=== PATIENT | male | born 1985 | race Caucasian/White ===

== ENCOUNTER 2017-04-22 18:27 | Emergency (ER) | payer BC ==
--- NOTE | 2017-04-22 18:33 | UC ---
Eye Complaint HPI - HPI Summary HPI Summary: 31 YEAR OLD PRESENTS WITH COMPLAINS OF RIGHT LOWER EYELID PIMPLE. - History of Current Complaint Chief Complaint: UCEye Stated Complaint: EYE COMPLAINT Time Seen by Provider: 04/22/17 18:33 Hx Obtained From: Patient Onset/Duration: Sudden Onset Timing: Constant Severity Initially: Moderate Severity Currently: Moderate Pain Scale Used: 0-10 Numeric - 6 Location of Injury: Eye Lid (lower) - RIGHT - Allergies/Home Medications Allergies/Adverse Reactions: Allergies Allergy/AdvReac Type Severity Reaction Status Date / Time Penicillins Allergy Severe Anaphylatic Verified 04/22/17 18:31 Shock Home Medications: Home Medications Ranitidine HCl (Nf) [Zantac] PRN 04/22/17 [History] PMH/Surg Hx/FS Hx/Imm Hx Previously Healthy: Yes - Surgical History Surgical History: None - Social History Alcohol Use: Occasionally Substance Use Type: None Smoking Status (MU): Never Smoked Tobacco Review of Systems Constitutional: Negative Skin: Negative Eyes: Other - RIGHT LOWER EYELID PIMPLE ENT: Negative Respiratory: Negative Cardiovascular: Negative Gastrointestinal: Negative Genitourinary: Negative Motor: Negative Neurovascular: Negative Musculoskeletal: Negative Neurological: Negative Psychological: Negative All Other Systems Reviewed And Are Negative: Yes Physical Exam Triage Information Reviewed: Yes Vital Signs: Initial Vital Signs Temp 36.4 C 04/22/17 18:29 Pulse 85 04/22/17 18:29 Resp 16 04/22/17 18:29 BP 119/78 04/22/17 18:29 Pulse Ox 99 04/22/17 18:29 Eyes: Positive: Other: - RIGHT LOWER EYE LID PIMPLE ENT Exam: Normal Dental Exam: Normal Neck exam: Normal Neck: Positive: 1 Respiratory Exam: Normal Cardiovascular Exam: Normal Abdominal Exam: Normal Musculoskeletal Exam: Normal Neurological Exam: Normal Psychological Exam: Normal Skin Exam: Normal Eye Complaint Course/Dx - Differential Dx/Diagnosis Provider Diagnoses: RIGHT LOWER EYELID STYE Discharge - Discharge Plan Condition: Stable Disposition: HOME Prescriptions: Erythromycin OPHTH.OINT* [Ilotycin OPHTH.OINT*] 1 applic RIGHT EYE QID #1 tube Referrals: ISABELLA Masters [[facility]BUS[employer], APPLICATION, OTHER] - Jesús Meza MD [Medical Doctor] -
[2017-04-22 18:45] VITALS: BP 119/78
== END 2017-04-22 18:40 | disposition home or self-care (01) ==
LOC: UCEAST 18:27
DX: H00.012 Hordeolum externum right lower eyelid (principal); Z88.0 Allergy status to penicillin
CPT/HCPCS: 99212; G0463

== ENCOUNTER 2017-06-29 16:40 | Emergency (ER) | payer BC ==
[2017-06-29 17:05] VITALS: BP 116/77
--- NOTE | 2017-06-29 17:33 | UC ---
Tamica Ocampo Nilda, scribed for Ellie Zhu MD on 06/29/17 at 1732 . Complaint Male HPI - HPI Summary HPI Summary: This patient is a 31 year old M presenting [place] [facility] [place] a chief complaint of constant diffuse testicular and scrotal pain for the past few days. The patient rates the pain 5/10 in severity and describes it as an ache. Symptoms aggravated and alleviated by nothing. Patient reports intermittent rectal pain with defecation and urinary frequency. He denies fever, abnormal BM, melena, burning during urination, lesions or erythema on penis or scrotum, discharge from penis, pain with ejaculation or erections, back pain, SOB, CP, epididymitis, and cysts on genitals. Pt has been with same partner and is not sure if he should be concerned for STIs. He states he has not had recent STIs and denies being immunocompromised in any capacity including DM, chemotherapy, and HIV. He notes he has not had recent assaults or trauma to affected area. Pt states has used enema. Pt states he is not currently on daily medications. Patients medication reviewed this visit. - History of Current Complaint Chief Complaint: UCGU Stated Complaint: TESTICULAR PAIN Hx Obtained From: Patient Onset/Duration: Sudden Onset, Lasting Days, Still Present Timing: Constant, Lasting Days, Lasting Weeks Severity Currently: Moderate Pain Intensity: 5 Pain Scale Used: 0-10 Numeric Location: Testicle Aggravating Factor(s): Other - BM Alleviating Factor(s): Nothing Associated Signs And Symptoms: Positive: Negative - Allergies/Home Medications Allergies/Adverse Reactions: Allergies Allergy/AdvReac Type Severity Reaction Status Date / Time Penicillins Allergy Severe Anaphylatic Verified 04/22/17 18:31 Shock PMH/Surg Hx/FS Hx/Imm Hx Previously Healthy: Yes - Surgical History Surgical History: Yes Surgery Procedure, Year, and Place: tonsillectomy - Family History Known Family History: Positive: Diabetes - Social History Occupation: Employed Full-time Lives: With Family Alcohol Use: Occasionally Substance Use Type: None Smoking Status (MU): Never Smoked Tobacco Review of Systems Constitutional: Other - negative fever Respiratory: Other - negative SOB Cardiovascular: Other - negative CP Gastrointestinal: Other - rectal pain;negative abnormal BM, melena Genitourinary: Frequency, Other - testicular pain; negative burning during urination, lesions or erythema on penis or scrotum, discharge from penis, pain with ejaculation or erections, epididymitis, and cysts on genitals. Musculoskeletal: Other: - negative back pain Is Patient Immunocompromised?: No All Other Systems Reviewed And Are Negative: Yes Physical Exam Triage Information Reviewed: Yes Appearance: Well-Appearing, No Pain Distress, Well-Nourished Vital Signs: Initial Vital Signs Temp 98.1 F 06/29/17 16:55 Pulse 74 06/29/17 16:55 Resp 16 06/29/17 16:55 BP 116/77 06/29/17 16:55 Pulse Ox 100 06/29/17 16:55 Vital Signs Reviewed: Yes Eyes: Positive: Conjunctiva Clear ENT: Positive: Normal ENT inspection, Hearing grossly normal, Pharynx normal Dental Exam: Normal Neck exam: Normal Neck: Positive: Supple, Nontender Respiratory Exam: Normal Respiratory: Positive: Chest non-tender, Lungs clear, Normal breath sounds, No respiratory distress, No accessory muscle use Cardiovascular Exam: Normal Cardiovascular: Positive: RRR, No Murmur, Pulses Normal Abdominal Exam: Normal Abdomen Description: Positive: Nontender, No Organomegaly, Soft, Other: - testes down b/l. non tender, no masses No pain over epidydmis b/l No edema, erythema, ecchymosis of scrotum no external lesions no inguinal hernia b/l Bowel Sounds: Positive: Present Musculoskeletal Exam: Normal Musculoskeletal: Positive: Strength Intact, ROM Intact Neurological Exam: Normal Neurological: Positive: Alert Psychological Exam: Normal Complaint Male Course/Dx - Course Course Of Treatment: Pt with report of ongoing, intermittent rectal, scrotal and testicular pain x several day. No dyuria, hematuria. No concerning findings on exam. Pt was advised to visit [facility] for US since US services at were not available at the time. Pt is stable and will be transferred to ED with Dx of rectal pain and scrotal pain. - Differential Dx/Diagnosis Provider Diagnoses: scrotal pain. rectal pain Discharge - Discharge Plan Condition: Stable Disposition: HOME Patient Education Materials: Rectal Pain (ED), Scrotal Pain (ED) Referrals: Leena Goldman MD [Primary Care Provider] - Additional Instructions: The doctor that evaluated you today recommends you go to the emergency department for further evaluation and treatment. The evaluation may include an ultrasound, urinalysis, possibly lab work The documentation as recorded by the Tamica savageChristi accurately reflects the service I personally performed and the decisions made by me, Ellie Zhu MD.
== END 2017-06-29 17:30 | disposition home or self-care (01) ==
LOC: UCEAST 16:40
DX: N50.82 Scrotal pain (principal); K62.89 Other specified diseases of anus and rectum; Z88.0 Allergy status to penicillin
CPT/HCPCS: 99212; G0463

== ENCOUNTER 2017-06-29 17:56 | Emergency (ER) | payer BC ==
--- NOTE | 2017-06-29 20:34 | RAD ---
INDICATION: Scrotal pain COMPARISON: None TECHNIQUE: Duplex interrogation of the scrotum was performed. FINDINGS: The testicles are normal in size and echogenicity. There is no evidence for testicular mass. The right testis measures 4.9 x 2.0 x 3.0 cm and the left 4.2 x 2.1 x 2.9 cm. There is symmetric flow on Doppler interrogation. Arterial and venous waveforms are identified bilaterally. The epididymides appear normal. The right epididymal head measures 1.0 x 1.1 cm and the left 0.8 x 0.9 cm. Trace bilateral hydroceles are noted. There are no varicoceles. IMPRESSION: Trace bilateral hydroceles in an otherwise normal ultrasound examination of the scrotum.
[2017-06-29] MEDS ORDERED: Dibucaine 1% 28.35 GM TUBE PR PRN (22:02)
[2017-06-29] MEDS ORDERED: Hydrocortisone SUPP* 25 MG SUPP (2.5%) PR ONE (22:03)
--- NOTE | 2017-06-29 22:09 | ED ---
GI/ HPI - HPI Summary HPI Summary: 31M presents with scrotal pain today. He states he was exercising and noticed some bruising and swelling to his scrotum. this has never happened before. no history of STD or trauma. He denies any dysuria, hematuira, flank pain, urgency , frequency. He denies any penile discharge or history of epididymitis. He denies any fever. He states the swelling has decreased throughout the day. He states the brusing has disappear since he arrived at which was transfered from. He also admits to intermittent rectal pain for past weeks. He states worst when he sits on area. He denies any rectal bleed or melena. He denies any constipation or excessive straining. He denies any fever or abdominal pain. He denies any previous abdominal surgeries or history of uc or crohns. He states the area is itchy. He has not tried anything. - History of Current Complaint Chief Complaint: EDRectalPain Time Seen by Provider: 06/29/17 21:19 Stated Complaint: TESTICULAR & RECTAL PAIN Pain Intensity: 5 - Allergy/Home Medications Allergies/Adverse Reactions: Allergies Allergy/AdvReac Type Severity Reaction Status Date / Time Penicillins Allergy Severe Anaphylatic Verified 04/22/17 18:31 Shock PMH/Surg Hx/FS Hx/Imm Hx Endocrine/Hematology History: Denies: Hx Diabetes, Hx Thyroid Disease Cardiovascular History: Denies: Hx Hypertension, Hx Pacemaker/ICD Respiratory History: Denies: Hx Asthma, Hx Chronic Obstructive Pulmonary Disease (COPD) GI History: Denies: Hx Ulcer Musculoskeletal History: Denies: Hx Scoliosis Sensory History: Denies: Hx Hearing Aid Neurological History: Reports: Hx Headaches Denies: Other Neuro Impairments/Disorders Psychiatric History: Denies: Hx Panic Disorder - Surgical History Surgery Procedure, Year, and Place: tonsillectomy - Immunization History Immunizations Up to Date: Yes Infectious Disease History: No Infectious Disease History: Denies: Hx Hepatitis, Hx Human Immunodeficiency Virus (HIV), History Other Infectious Disease, Traveled Outside the [place] in Last 30 Days - Family History Known Family History: Positive: Diabetes - Social History Alcohol Use: Occasionally Substance Use Type: Reports: None Smoking Status (MU): Never Smoked Tobacco Review of Systems Negative: Fever Negative: Chest Pain Negative: Shortness Of Breath Positive: Other - rectal pain Positive: other - scrotal pain and edema. Negative: dysuria, flank pain All Other Systems Reviewed And Are Negative: Yes Physical Exam Triage Information Reviewed: Yes Vital Signs On Initial Exam: Initial Vitals Temp Pulse Resp BP Pulse Ox 97.8 F 68 18 122/77 98 06/29/17 18:00 06/29/17 18:00 06/29/17 18:00 06/29/17 18:00 06/29/17 18:00 Vital Signs Reviewed: Yes Appearance: Positive: Well-Appearing Skin: Positive: Warm, Dry Head/Face: Positive: Normal Head/Face Inspection Eyes: Positive: Normal, Conjunctiva Clear Respiratory/Lung Sounds: Positive: Clear to Auscultation, Breath Sounds Present Cardiovascular: Positive: Normal, RRR Abdomen Description: Positive: Nontender, Soft, Other: - hemorrhoid present on posterior left Bowel Sounds: Positive: Present Male Genital Exam: Positive: normal genitalia, no hernia. Negative: epididymal tenderness, erythema, inguinal tenderness, scrotum tenderness (R), scrotum tenderness (L), testicular tenderness (R), testicular tenderness (L) Neurological: Positive: Normal Psychiatric: Positive: Normal - [place] Coma Scale Coma Scale Total: 15 Diagnostics - Vital Signs Vital Signs Temp Pulse Resp BP Pulse Ox 06/29/17 20:14 98.1 F 71 16 127/73 98 06/29/17 18:00 97.8 F 68 18 122/77 98 - Laboratory Lab Statement: Any lab studies that have been ordered have been reviewed, and results considered in the medical decision making process. - Ultrasound No standard instances Ultrasound Interpretation: Positive (See Comments) - IMPRESSION: Trace bilateral hydroceles in an otherwise normal ultrasound examination of the scrotum. Ultrasound Interpretation Completed By: Radiologist CLEOPATRA Course/Dx - Course Course Of Treatment: 31M presents with scrotal pain today. He states he was exercising and noticed some bruising and swelling to his scrotum. this has never happened before. no history of STD or trauma. He denies any dysuria, hematuira, flank pain, urgency, frequency. He denies any penile discharge or history of epididymitis. He denies any fever. He states the swelling has decreased throughout the day. He states the brusing has disappear since he arrived at which was transfered from. testicular exam normal. u/s only shows hydrocele. with the history what to have follow up with urology to make sure nothing else going on (possible torison that fixed itself). He also admits to intermittent rectal pain for past weeks. He states worst when he sits on area. He denies any rectal bleed or melena. He denies any constipation or excessive straining. He denies any fever or abdominal pain. He denies any previous abdominal surgeries or history of uc or crohns. He states the area is itchy. He has not tried anything. on exam has hemorrhoids present on posterior left. will treat with anusol and dibucaine for pain. told that will take some time but if not improving to follow up with surgery. patient understand and agrees with plan. - Diagnoses Differential Diagnoses - Male: Epididymitis, Hemorrhoids, Testicular Torsion, Other - anal fissure Provider Diagnoses: Scrotal pain, Hydrocele, Hemorrhoid Discharge - Discharge Plan Condition: Good Disposition: HOME Prescriptions: Dibucaine 1% OINT* [Nupercainal 1% OINT*] 1 applic [place] DAILY #1 oint Hydrocortisone SUPP* [Anusol HC Supp*] 25 mg [place] BID #20 supp Patient Education Materials: Hydrocele (ED) Referrals: James Rosales MD [Medical Doctor] - Ravinder Wren MD [Medical Doctor] - Leena Goldman MD [Primary Care Provider] - Additional Instructions: Follow up with urology about scrotal pain Take ibuprofen for pain every 6 hours for pain Inc fiber, consider taking OTC laxative for constipation Can do sitz baths [address] dibucaine sparingly on area up to 6 times a day for pain Use ansuol suppository twice a day until symptoms resolve Follow up with surgery Return to ED if any new or worsening symptoms
[2017-06-29 22:28] LABS: Urine Bilirubin Negative (Negative); Urine Glucose Negative (Negative); Urine Nitrite Negative (Negative)
[2017-06-29 22:33] VITALS: BP 128/68
== END 2017-06-29 22:36 | disposition home or self-care (01) ==
LOC: ED 17:56
DX: N50.82 Scrotal pain (principal); N43.3 Hydrocele, unspecified; K64.9 Unspecified hemorrhoids
CPT/HCPCS: 36415; 76870; 81003; 86703; 99282; A9270-GY

== ENCOUNTER 2018-01-05 17:38 | Emergency (ER) | payer BC ==
[2018-01-05 17:47] VITALS: BP 136/72
[2018-01-05] MEDS ORDERED: Azithromycin TAB* 250 MG PO ONE (19:12)
[2018-01-05] MEDS ORDERED: cefTRIAXone VIAL(*) 250 MG VIAL IM ONE (19:12)
--- NOTE | 2018-01-05 19:15 | UC ---
Krista Ocampo Emily, scribed for Avinash Islas MD on 01/05/18 at 1823 . Complaint Male HPI - HPI Summary HPI Summary: This patient is a 32 year old M presenting to urgent care with a chief complaint of topical irritation to rectal area that began upon waking this morning. The patient rates the pain 3/10 in severity. Symptoms aggravated by nothing. Symptoms alleviated by nothing. Patient denies sore throat, fever, chills, abd pain, and urinary symptoms. Pt reports a history of anal chlamydia and gonorrhea. Pt reports a history of hemorrhoids. - History of Current Complaint Chief Complaint: UCGI Stated Complaint: PERSONAL Time Seen by Provider: 01/05/18 18:04 Hx Obtained From: Patient Onset/Duration: Sudden Onset, Lasting Hours, Still Present Timing: Constant Severity Initially: Mild Severity Currently: Mild Pain Intensity: 3 Pain Scale Used: 0-10 Numeric Location: Other - Rectal area Aggravating Factor(s): Nothing Alleviating Factor(s): Nothing - Allergies/Home Medications Allergies/Adverse Reactions: Allergies Allergy/AdvReac Type Severity Reaction Status Date / Time Penicillins Allergy Swelling Verified 01/05/18 17:48 Of Face,Lips,& Throat PMH/Surg Hx/FS Hx/Imm Hx Previously Healthy: No GI/ History: Other Other GI/ History: Chlamydia and gonorrhea. Hemorrhoids Neurological History: Other Other Neurological History: Headaches - Surgical History Surgical History: Yes Surgery Procedure, Year, and Place: tonsillectomy - Family History Known Family History: Positive: Diabetes - Social History Occupation: Employed Full-time Lives: Alone Alcohol Use: Weekly Substance Use Type: None Smoking Status (MU): Never Smoked Tobacco Review of Systems Constitutional: Other - Negative fever and chills ENT: Other - Negative sore throat Gastrointestinal: Other - Positive irritation to rectal area. Negative abd pain Genitourinary: Negative All Other Systems Reviewed And Are Negative: Yes Physical Exam - Summary Physical Exam Summary: General: well-appearing, no pain distress Skin: warm, color reflects adequate perfusion, dry Head: normal Eyes: EOMI, SANTOS ENT: normal Neck: supple, nontender Respiratory: CTA, breath sounds present Cardiovascular: RRR Abdomen: soft, nontender Bowel: present Rectal Exam: 3 mm external hemorrhoid on the anterior aspect Musculoskeletal: normal, strength/ROM intact Neurological: sensory/motor intact, A&O x3 Psychological: affect/mood appropriate Triage Information Reviewed: Yes Vital Signs: Initial Vital Signs Temp 98.5 F 01/05/18 17:45 Pulse 67 01/05/18 17:45 Resp 18 01/05/18 17:45 BP 136/72 01/05/18 17:45 Pulse Ox 97 01/05/18 17:45 Vital Signs Reviewed: Yes Complaint Male Course/Dx - Course Course Of Treatment: APTIMA SWABS OF PHARYNX AND ANUS OBTAINED. URINE GC/ CHLAMYDIA OBTAINED. TREATED EMPIRICALLY/. WILL NEED LAB RESULTS. F/U PMD; RETURN IF WORSE. - Differential Dx/Diagnosis Provider Diagnoses: ANAL PAIN AND ITCHING. HEMORRHOID Discharge - Sign-Out/Discharge Documenting (check all that apply): Discharge/Admit/Transfer - Discharge Plan Condition: Stable Disposition: HOME Patient Education Materials: Hemorrhoids (ED), Anal Itching (ED) Referrals: Leena Goldman MD [Primary Care Provider] - Additional Instructions: FOLLOW UP WITH YOUR DOCTOR. YOUR LAB RESULTS ARE PENDING. GET RECHECKED FOR ANY WORSENING OF YOUR CONDITION OR QUESTIONS OR CONCERNS. - Billing Disposition and Condition Condition: STABLE Disposition: HOME The documentation as recorded by the Krista savage Emily accurately reflects the service I personally performed and the decisions made by me, Avinash Islas MD.
[2018-01-05] MEDS ORDERED: Lidocaine 1% MPF* 2 ML VIAL ONE (19:21)
[2018-01-05] MEDS ORDERED: Lidocaine 1% MPF* 2 ML VIAL INJ ONE (19:29)
== END 2018-01-05 19:35 | disposition home or self-care (01) ==
LOC: UCEAST 17:38
DX: K62.89 Other specified diseases of anus and rectum (principal); L29.0 Pruritus ani; K64.4 Residual hemorrhoidal skin tags; Z88.0 Allergy status to penicillin
CPT/HCPCS: 87491; 87591; 96372; 99212; A9270-GY; G0463; J0696